=== PATIENT | female | born 1965 | race Caucasian/White ===

== ENCOUNTER → 2020-12-21 10:58 | Outpatient (CLI) | payer OTHER ==
[2015-06-24 06:02] VITALS: BMI 29.8
[~2020-12-21 10:58] MED LIST: BENICAR HCT 40-1 TA1 PO; FLUTICASONE PRO16 GM NASAL; INVOKANA300 MG PO; METANX PO; MOBIC7.5 MG PO; NOVOLOG100 U/M1; OXYCONTIN10 MG PO; PROZAC40 MG PO; WELLBUTRIN SR150 MG PO
== END | disposition home or self-care (01) ==
LOC: D.RAD 10:58
PROVIDERS: ATTEND Pediatrics
DX: Z02.71 Encounter for disability determination (principal)